=== PATIENT | male | born 1985 | race Two or more races ===

== ENCOUNTER 2019-02-19 14:05 | Emergency (ER) | payer OTHER ==
[~2019-02-19] VITALS: Ht 172.7 cm; Wt 60.4 kg
[~2019-02-19 14:05] MED LIST: SEIZURE MED
[2019-02-19 14:08] VITALS: BP 118/81
--- NOTE | 2019-02-19 14:28 | NUR ---
OBSERVED PT TALKING ON CELL PHONE & WALKING OUT OF ROOM TOWARDS EXIT. CAUGHT UP W/ PT AT WAITING ROOM EXIT DOOR. PT STATES HE'S LEAVING
== END 2019-02-19 14:31 | disposition left against medical advice (07) ==
LOC: ED 14:25
DX: R68.89 Other general symptoms and signs (principal); Z53.21 Procedure and treatment not carried out due to patient leaving prior to being seen by health care provider

== ENCOUNTER 2019-12-09 08:31 | Emergency (ER) | payer SELFPAY ==
[~2019-12-09] VITALS: Ht 185.4 cm; Wt 64.4 kg
[2019-12-09 08:33] VITALS: BP 109/86
[2019-12-09] MEDS ORDERED: AZITHROMYCIN 500 MG TABLET ONE (09:06)
[2019-12-09] MEDS ORDERED: CEFTRIAXONE 250 MG ONE (09:07)
[2019-12-09] MEDS ORDERED: AZITHROMYCIN 500 MG TABLET PO ONE (10:00)
[2019-12-09] MEDS ORDERED: CEFTRIAXONE 250 MG IM ONE (10:00)
== END 2019-12-09 09:36 | disposition home or self-care (01) ==
LOC: ED 08:49
DX: K08.89 Other specified disorders of teeth and supporting structures (principal); A54.01 Gonococcal cystitis and urethritis, unspecified
CPT/HCPCS: 96372; 99283; J0696

== ENCOUNTER 2020-01-15 13:57 | Emergency (ER) | payer OTHER ==
[~2020-01-15] VITALS: Ht 172.7 cm; Wt 65.6 kg
[2020-01-15 13:59] VITALS: BP 120/78
== END 2020-01-15 14:44 | disposition home or self-care (01) ==
LOC: ED 14:05
DX: K02.9 Dental caries, unspecified (principal); K08.89 Other specified disorders of teeth and supporting structures; F17.200 Nicotine dependence, unspecified, uncomplicated
CPT/HCPCS: 99283

== ENCOUNTER 2020-01-17 09:17 | Emergency (ER) | payer OTHER ==
[~2020-01-17] VITALS: Ht 172.7 cm; Wt 66.4 kg
[2020-01-17 09:21] VITALS: BP 128/85
[2020-01-17] MEDS ORDERED: LIDOCAINE-MPF 1%, 5ML ONE (09:35)
[2020-01-17] MEDS ORDERED: BUPIVACAINE 0.25% ONE (09:35)
--- NOTE | 2020-01-17 09:51 | NUR ---
PT AMBULATORY TO ROOM 1 W/ C/O DENTAL PAIN. WAS SEEN HERE 2 DAYS AGO FOR SAME. PT STATES PAIN REMAINS. FABIOLA IRAHETA AT BEDSIDE.
[2020-01-17] MEDS ORDERED: BUPIVACAINE/PF-EPI 0.25% 1:200K SQ ONE (10:00)
[2020-01-17] MEDS ORDERED: LIDOCAINE-MPF 1%, 5ML INFIL ONE (10:00)
== END 2020-01-17 10:02 | disposition home or self-care (01) ==
LOC: ED 09:44
DX: K04.6 Periapical abscess with sinus (principal); F15.20 Other stimulant dependence, uncomplicated; Z87.891 Personal history of nicotine dependence
CPT/HCPCS: 41800; 99282; 99284; 99406

== ENCOUNTER 2020-02-02 21:17 | Emergency (ER) | payer MEDICAID ==
[~2020-02-02] VITALS: Ht 172.7 cm; Wt 65.6 kg
[2020-02-02 21:32] VITALS: BP 109/73
--- NOTE | 2020-02-02 23:12 | NUR ---
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
[2020-02-02] MEDS ORDERED: LIDOCAINE-MPF 1%, 5ML ONE (23:41)
[2020-02-02] MEDS ORDERED: LORazepam 1MG TABLET ONE (23:41)
[2020-02-03] MEDS ORDERED: LORazepam 1MG TABLET PO ONE
[2020-02-03] MEDS ORDERED: LIDOCAINE 1%, 2ML INFIL ONE
[2020-02-03] MEDS ORDERED: HYDROcodone/APAP 5/325 TABLET ONE (00:18)
[2020-02-03] MEDS ORDERED: HYDROcodone/APAP 5/325 TABLET PO ONE (00:30)
== END 2020-02-03 00:24 | disposition home or self-care (01) ==
LOC: ED 02-03
DX: K04.6 Periapical abscess with sinus (principal); K08.89 Other specified disorders of teeth and supporting structures; Z87.891 Personal history of nicotine dependence
CPT/HCPCS: 41800; 99284; J3490

== ENCOUNTER 2020-04-26 17:17 | Emergency (ER) | payer MEDICAID ==
[~2020-04-26] VITALS: Ht 172.7 cm; Wt 66.8 kg
--- NOTE | 2020-04-26 17:32 | NUR ---
inspector wire products: attempted to call pt for triage, no answer
[2020-04-26 17:38] VITALS: BP 121/79
[2020-04-26 17:58] LABS: MICROSCOPIC NOT IND
--- NOTE | 2020-04-26 19:55 | NUR ---
PROVIDER AT BEDSIDE
[2020-04-26] MEDS ORDERED: CEFTRIAXONE 250 MG IM ONE (20:30)
[2020-04-26] MEDS ORDERED: AZITHROMYCIN 500 MG TABLET PO ONE (20:30)
[2020-04-26] MEDS ORDERED: AZITHROMYCIN 500 MG TABLET ONE (20:33)
[2020-04-26] MEDS ORDERED: CEFTRIAXONE 250 MG ONE (20:34)
== END 2020-04-26 20:49 | disposition home or self-care (01) ==
LOC: ED 20:25
DX: A60.01 Herpesviral infection of penis (principal)
CPT/HCPCS: 81003; 87491; 87591; 96372; 99283; J0696